=== PATIENT | female | born 2000 | race Caucasian/White ===

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

== ENCOUNTER 2024-03-30 15:40 | Emergency (ER) | payer OTHER, MEDICAID ==
[2024-03-30 16:08] VITALS: BP 135/82; O2SAT 99
--- NOTE | 2024-03-30 16:11 | ED Physician Documentation ---
PD HPI BACK PAIN - Stated complaint Stated Complaint: BACK PX - Chief complaint Chief Complaint: Back Pain - History obtained from History obtained from: Patient, Family (mother) - History of Present Illness Timing - onset: Last night Timing - duration: Hours Timing - details: Abrupt onset, Still present Pain level max: 10 Pain level now: 10 Location: Lower Quality: Pain, Spasm, Sharp, Similar to prior episodes Associated symptoms: No: Fever, Weakness, Numbness, Incontinent of urine, Unable to urinate, Hematuria, Incontinent of stool Improves with: Rest, Position, Meds Worsened by: Movement Contributing factors: Other (went bowling after work and had sudden onset of severe pain) Similar symptoms before: No diagnosis Recently seen: Not recently seen - Additional information Additional information: Maria Elena Cisse is a 23-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 While she was bowling she had the onset of severe low back pain. She has had the same low back pain for the past 1-1/2 years comes and goes she is uncertain what she did to it she has a very specific area in her lower back which hurts. Review of Systems Constitutional: denies: Fever Ears: denies: Ear pain Throat: denies: Sore throat Respiratory: denies: Cough GI: denies: Nausea, Vomiting, Constipation, Diarrhea PD PAST MEDICAL HISTORY - Past Medical History Respiratory: Asthma Musculoskeletal: None - Past Surgical History Past Surgical History: Yes - Present Medications Home Medications: Ambulatory Orders Medication Instructions Recorded Confirmed Albuterol 07/29/18 Fluticasone Propionate [Flovent 07/29/18 Diskus] Sertraline [Zoloft] 07/29/18 07/29/18 Cyclobenzaprine [Flexeril] 10 mg PO TID PRN #20 tablet 03/30/24 - Allergies Allergies/Adverse Reactions: Allergies Allergy/AdvReac Type Severity Reaction Status Date / Time melon Allergy Itching Verified 03/30/24 16:00 watermelon Allergy Itching Verified 03/30/24 16:00 amoxicillin AdvReac Unknown Rash Verified 04/12/19 14:15 - Social History Does the pt smoke?: No Smoking Status: Never smoker Does the pt drink ETOH?: No Does the pt have substance abuse?: No - Immunizations Immunizations are current?: Yes - POLST Patient has POLST: No PD ED PE NORMAL - Vitals Vital signs reviewed: Yes (hypertensive mild ) - General General: Alert and oriented X 3, No acute distress, Well developed/nourished - HEENT HEENT: Atraumatic, PERRL - Respiratory Respiratory: No respiratory distress - Back Back: No CVA TTP, Other (midline tenderness at L4/5 includes paraspinous about 2-3cm ) - Derm Derm: Normal color, Warm and dry, No rash - Extremities Extremities: No deformity, No edema - Neuro Neuro: Alert and oriented X 3, 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 Otherwise, no significant degenerative change.), EMP independent interpretation of test PD Medical Decision Making - ED course Complexity details: reviewed results, re-evaluated patient, considered differential, d/w patient, d/w family ED course: 23-year-old Maria Elena Cisse comes into the emergency department with a chief complaint of lower back pain that she has had for the past year and a half that is worse after a long day at work and bowling last night. She now has intolerable pain and she is administered dexamethasone and Toradol. She gives a very specific area of her back that is hurting and I felt compelled to obtain a plain film to rule out spondylolisthesis and we saw none of this. There is evidence of disc space narrowing before between L4 and 5 and this could be an explanation of why this patient is having this pain. We will ask her to follow- up with a primary for physical therapy. Departure - Departure Disposition: 01 Home, Self Care Clinical Impression: Lumbar disc disease Condition: Stable Instructions: ED Low Back Pain Injury Prescriptions: Cyclobenzaprine [Flexeril] 10 mg PO TID PRN #20 tablet PRN Reason: Spasms Comments: Maria Elena, today it looks like you have lumbar disc disease and it looks like you overdid it yesterday and strained your back. This will usually take as long as a week to get better and the medications we gave you today should help tremendously. I have E scribed some muscle relaxant to the [facility] in [place] for you to use for sleep at night. I recommend that if you are going to take this, take the ibuprofen and Tylenol at the same time. If you are taking ibuprofen always take it with food because it does irritate the lining of everyones' stomach. A follow-up with a primary care doctor is indicated for a prescription for physical therapy. Physical therapy is the mainstay of treatment for this condition. It may take more than a year to get the results that will make this all worth it. Forms: PCP List
[2024-03-30] MEDS: KETOROLAC 30 MG/ML VIAL IM STA (16:32)
[2024-03-30] MEDS: CHERRY SYRUP 10 ML UDC PO ONE (16:32)
[2024-03-30] MEDS: DEXAMETHASONE 10 MG/ML VIAL PO STA (16:32)
--- NOTE | 2024-03-30 16:32 | XRAY Report ---
PROCEDURE: Lumbar Spine 2-3V INDICATIONS: ? spondylolisthesis TECHNIQUE: 2 views of the lumbar spine were acquired. COMPARISON: None. FINDINGS: Surgical change: None. Bones: 5 [id number] vertebrae are present. There is normal bony alignment. No vertebral body co mpression fractures. No suspicious bony lesions. Mild disc height loss at L4-5. Soft tissues: Overlying bowel gas pattern is normal. No suspicious soft tissue calcifications. IMPRESSION: Mild disc height loss at L4-5. Otherwise, no significant degenerative change. Reviewed by: Jeffry Fermin MD on 03/30/2024 4:30 PM PDT Approved by: Jeffry Fermin MD on 03/30/2024 4:30 PM PDT Station ID: [id number]
== END 2024-03-30 17:01 | disposition home or self-care (01) ==
LOC: ED 15:40
DX: M51.36 Other intervertebral disc degeneration, lumbar region (principal)
CPT/HCPCS: 72100; 96372; 99283; 99284; A9270